=== PATIENT | male | born 1985 | race African-American/Black ===

== ENCOUNTER 2017-01-23 08:38 | Day surgery (SDC) | payer OTHER ==
[2017-01-19 15:24] VITALS: BMI 20.9
--- NOTE | 2017-01-20 09:09 | HP ---
DATE OF ADMISSION: DATE OF DICTATION: 01/15/2017 HISTORY: A 31-year-old man who for the past year has had an array of complaints which include joint discomfort and swelling, 30-pound weight loss, night sweats, and fever. Patient presents for limited left axillary adenectomy for diagnostic purposes. Patient with adenopathy. Recent CT scan of the chest (noncontrast) demonstrated evidence of hilar, mediastinal, and axillary lymphadenopathy. There is a diffuse reticular nodular pattern of the lungs noted with several small nodules. A differential diagnosis has included both neoplasia as well as sarcoid. PAST MEDICAL HISTORY: Essentially nil. No history of hypertension, heart disease, diabetes, respiratory, renal, or hepatic insufficiency. PAST SURGICAL HISTORY: Nil. ALLERGIES: None known. REGULAR MEDICATIONS: None. SOCIAL HISTORY: Positive tobacco, 1/2 pack per day. Positive alcohol, once weekly. FAMILY HISTORY: Nil. REVIEW OF SYSTEMS: Nil. PHYSICAL EXAMINATION: Neck: Palpation of the neck reveals preauricular adenopathy. There are also multiple small left anterior cervical lymph nodes noted clinically. Supraclavicular fossae are unremarkable. There are enlarged lymph nodes bilaterally at the level of the axilla which are equal in size and distribution. Abdomen: Soft and nontender. Spleen not palpable. Multiple small nodes of the groins identified. IMPRESSION: A 31-year-old man with lymphadenopathy, with the more pronounced lymph nodes noted at the level of the subcarinal and pretracheal regions as well as the axilla. Symptom complex raising the suspicion for underlying lymphoma. PLAN: Patient is right handed. Will proceed with limited lymphadenectomy of the left axilla. Indications, alternatives, and possible complications reviewed. Consent obtained. Patient to be seen preoperatively by his PMD, Dr. Andrez Box. Please refer to her note for those medical details. Desiree COWART/[id number] cc: MD Andrez Hernandez MD
[2017-01-23] MEDS ORDERED: MIDAZOLAM HCL 2 MG/2 ML SINGLE DOSE VIAL ONE ×2 (14:08)
[2017-01-23] MEDS ORDERED: PROPOFOL 20 ML ONE ×2 (14:08)
[2017-01-23] MEDS ORDERED: LIDOCAINE HCL 1%, 10 MG/ML (20ML VIAL) ONE (14:29)
[2017-01-23] MEDS ORDERED: ceFAZolin SODIUM 1 GM VIAL ONE (14:56)
[2017-01-23] MEDS ORDERED: DEXAMETHASONE SOD PHOSPHATE 4 MG/1 ML VIAL ONE (15:21)
[2017-01-23] MEDS ORDERED: ONDANSETRON 4 MG/2 ML VIAL ONE (15:21)
[2017-01-23] MEDS ORDERED: ONDANSETRON 4 MG/2 ML VIAL IVPUSH PRN (15:55)
[2017-01-23] MEDS ORDERED: oxyCODONE HCL 5 MG TABLET PO PRN (15:55)
[2017-01-23] MEDS ORDERED: LACTATED RINGERS SOLUTION 1,000 ML IV SCH (16:00)
[2017-01-23 17:35] VITALS: PULSE 71
[2017-01-23] MEDS ORDERED: oxyCODONE HCL 5 MG TABLET ONE ×2 (17:36→17:40)
[2017-01-23 18:44] VITALS: BP 118/74; TEMP 98.2
--- NOTE | 2017-01-24 00:57 | OP ---
DATE OF OPERATION: 01/23/2017 PREOPERATIVE DIAGNOSIS: Lymphadenopathy. POSTOPERATIVE DIAGNOSIS: Lymphadenopathy. PROCEDURE: Limited left axillary lymphadenectomy (intermediate wound closure 5cm). OPERATING SURGEON: Antonio Olivas M.D. HOSTESS CASHIER: None ANESTHESIA: Melchor Zepeda MD (general) HISTORY: A 31-year-old man who for the past year has lost significant weight and has been experiencing fever as well. Patient has lymphadenopathy grossly. Request made by medical service for limited lymphadenectomy. Indications, alternatives, and possible complications reviewed. Consent obtained. DESCRIPTION OF PROCEDURE: With the patient in the supine position, under general endotracheal anesthesia, the left axilla was prepped and draped in the usual sterile fashion using chlorhexidine. A 5-cm incision was made just beneath the hair bearing area of the left axilla. The incision was deepened into the subcutaneous space. Subcutaneous tissue with superficial x-ray of fascia were incised and the axilla entered. Multiple large suspicious lymph nodes were encountered. One large cluster was noted. Using sharp dissection, this matted group of left axillary lymph nodes was opened, and we delivered, managing hemostasis with Bovie electrocautery and clamp and tied. After excision specimen for fungus TB, anaerobic and aerobic cultures were obtained. Specimen was sent for histopathology. After irrigation and adequate hemostasis, a Bhavin-Venegas drain was placed in the depths of the left axilla and exited through a separate stab wound at the level of the left midaxillary line where the drain was tacked to the skin with 2-0 silk suture material. The wounds were closed in layers. The superficial fascia was approximated using interrupted 3-0 chromic suture. Subcutaneous and subcuticular layer were closed using interrupted 4-0 Biosyn. Biosyn was used in the subcuticular space in continuous fashion to approximate the skin edges. Dermabond applied. Procedure terminated. Needle, instrument count correct. Estimated blood loss minimal. Specimen, a group of left axillary lymph nodes. Drains, 1 BUFFY. Patient tolerated procedure. Procedure was terminated. Desiree [id number] MTDD
--- NOTE | 2017-01-27 14:24 | PATH ---
Surgical Pathology Report Patient Name: CAROLINE UMAÑA Med. Rec. #: [id number] /Age/Gender: 1985 (Age: 31) / M Account: [id number] Location: [facility] AMBULATORY Taken: 01/23/2017 Received: 01/23/2017 Reported: 01/27/2017 Physicians: Antonio Olivas M.D. Specimen(s) Received LYMPH NODES LEFT AXILLARY Clinical History Weight loss and fever Final Diagnosis Lymph nodes, left axilla, excision: Lymph node showing extensive non-caseating granulomas. (See note) afb, GMS, pas and mucicarmine stains are negative for acid fast bacilli and fungal organisms. Extensive coarse brown-black pigment within histiocytes/giant cells, possibly representing exogenous dye/ink ( such as tattoo). Note: These morphologic findings are compatible with sarcoidosis, in the appropriate clinical setting. Correlation with serum Angiotensin Converting Enzyme (NIKI) levels and pending tissue culture studies is recommended. Fresh tissue was sent to [place], [place] ([id number]) for flow cytometric analysis which reveals no evidence of B- or T-cell proliferative disorder. Case reviewed intradepartmentally with consensus on diagnosis. Case discussed with Dr. Olivas on 01/27/17. Electronically Signed Melodie Schroeder M.D. Gross Description Received fresh labeled "left axillary lymph node," are 7 oconnor black lymph nodes ranging from 0.5-2.4 cm in greatest dimension. Batch Analyst sections are placed in RPMI solution and sent for flow cytometry. The remaining lymph nodes are entirely submitted in 9 cassettes as follows: 1-2-one whole bisected lymph node; 3-4-one whole bisected lymph node; 5-9-one whole bisected lymph node each. /01/23/201701/23/2017
== END 2017-01-23 18:45 | disposition home or self-care (01) ==
LOC: FASU 08:38
PROVIDERS: ATTEND Surgery
PROC: 07B60ZZ Excision of Left Axillary Lymphatic, Open Approach (ICD-10-PCS; principal; 2017-01-23 10:00)
DX: I88.9 Nonspecific lymphadenitis, unspecified (principal)
CPT/HCPCS: 87070; 87075; 87102; 87116; 87205; 87206; 87210; 88307-TC; 88312-TC; 94010; 94760